=== PATIENT | female | born 1960 | race Caucasian/White ===

== ENCOUNTER → 2019-02-16 | Outpatient (CLI) | payer MEDICARE, MEDICAID | END | disposition home or self-care (01) | LOC: XY 08:28 | PROVIDERS: ATTEND Internal Medicine | DX: R07.9 Chest pain, unspecified (principal) | CPT/HCPCS: 78452; 93017; A9500 ==

== ENCOUNTER 2019-12-29 03:24 | Inpatient (IN) | payer MEDICARE, MEDICAID ==
[~2019-12-29] VITALS: Ht 152.4 cm; Wt 79.9 kg
[2019-12-29 04:11] LABS: Basophils # (auto) 0 10 ^3/uL (0-0.2); Basophils % (auto) 0.3 % (0.0-2.0); Eosinophils # (auto) 0 10 ^3/uL (0-0.8); Eosinophils % (auto) 0.9 % (0.0-7.0); Hematocrit 42.3 % (36.0-46.0); Hemoglobin 13.9 g/dL (12.2-16.2); Lymphocytes # (auto) 1.2 10 ^3/uL (0.4-5.4); Mean Corpuscular Hemoglobin 30.6 pg (28.0-32.0); Mean Corpuscular Hgb Conc. 32.9 g/dL (32.0-36.0); Monocytes # (auto) 0.3 10 ^3/uL (0-1.3); Monocytes % (auto) 5.2 % (0.0-12.0); Neutrophils # (auto) 4.1 10 ^3/uL (1.6-8.6); Neutrophils % (auto) 72.6 % (37.0-80.0); Nucleated Red Blood Cells % 0.1 %; Platelet Count (auto) 222 10^3/uL (140-450); Red Blood Cells 4.54 10^6/uL (4.0-5.20); White Blood Cell 5.6 10^3/uL (4.4-10.8)
[2019-12-29 04:27] LABS: INR 0.91 (0.9-1.15); Partial Thromboplastin Time 27.6 sec (23.64-32.05)
[2019-12-29 04:30] LABS: Anion Gap 10 (5-15); Blood Urea Nitrogen 23 mg/dL (7-18); Calcium 8.8 mg/dL (8.5-10.1); Carbon Dioxide 24 mmol/L (21-32); Chloride 103 mmol/L (98-107); Glucose 91 mg/dL (74-106); Potassium 3.6 mmol/L (3.5-5.1); Sodium 137 mmol/L (136-145)
[2019-12-29 04:35] LABS: Alanine Aminotransferase 26 U/L (13-56); Alkaline Phosphatase 75 U/L (45-117); Aspartate Aminotransferase 19 U/L (15-37); BUN/Creatinine Ratio 21.7; Bilirubin, Total 0.4 mg/dL (0.2-1.0); GFR African American 68 mL/min; GFR Non-African American 56 mL/min; Total Protein 8.1 g/dL (6.4-8.2)
[2019-12-29] MEDS ORDERED: diphenhdrAMINE HCL 50 MG/1 ML VL IV ONE (06:30)
[2019-12-29] MEDS ORDERED: LORazepam 2MG/ML-1ML VIAL IV ONE (06:30)
[2019-12-29 08:00] LABS: Urine Bacteria NONE SEEN /hpf (None Seen); Urine Blood Negative /uL (Negative); Urine Specific Gravity 1.045 (1.001-1.035); Urine WBC <1 /hpf (0 - 5)
[2019-12-29] MEDS ORDERED: AZITHROMYCIN 500MG/ 250ML 250 ML IV ONE (08:15)
[2019-12-29 08:44] LABS: CRP High Sensitivity 0.17 mg/dL (< 0.3)
[2019-12-29 09:35] LABS: Lactic Acid w/Reflex 2.1 mmol/L (0.4-2.0)
[2019-12-29] MEDS ORDERED: FUROSEMIDE 20 MG/2 ML VIAL IV ONE (13:30)
[2019-12-29] MEDS ORDERED: NITROGLYCERIN 0.4 MG SL TAB SL PRN (13:30)
[2019-12-29] MEDS ORDERED: MORPHINE SULF INJ 2 MG/ML SYRINGE 1ML IV PRN (13:30)
[2019-12-29] MEDS ORDERED: ACETAMINOPHEN 500 MG TAB PO PRN (13:30)
[2019-12-29] MEDS ORDERED: CHOLECALCIFEROL (VITD3) 1,000IU=25mCg TAB PO SCH (13:31)
[2019-12-29] MEDS ORDERED: ASCORBIC ACID 1,000 MG TAB PO SCH (13:31)
[2019-12-29] MEDS ORDERED: ZINC SULFATE 220mg CAP or TAB PO SCH (13:32)
[2019-12-29] MEDS: PANTOPRAZOLE 40 MG TAB PO SCH (13:32)
[2019-12-29] MEDS: ENOXAPARIN SOD 40 MG/0.4 ML SYRINGE SC SCH (13:32)
[2019-12-29] MEDS ORDERED: DEXTROSE (50%) 50ML SYRG IV PRN (13:45)
[2019-12-29] MEDS ORDERED: ALBUTEROL SULF HFA 90MCG INH 200DOSE IN SCH (14:00)
[2019-12-29 15:42] VITALS: BP 131/82
[2019-12-29] MEDS: InsuLIN REG 1unit/0.01ml Soln (100units/ml) SC SCH ×2 (17:00→21:43)
[2019-12-29] MEDS: ACCU-CHEK COMFORT CURVE STRIP VI SCH ×2 (17:55→21:43)
[2019-12-29 20:00] VITALS: BP 131/81
[2019-12-29] MEDS ORDERED: SIMV-8 PO (21:30)
[2019-12-29] MEDS ORDERED: METF-370 PO (21:30)
[2019-12-29] MEDS ORDERED: LOSA25TA38 PO (21:30)
[2019-12-29] MEDS ORDERED: HYDR12.56 PO (21:30)
[2019-12-29] MEDS ORDERED: DOXYCYCLINE 100 MG TAB/CAP PO SCH (22:00)
[2019-12-29] MEDS ORDERED: LOSARTAN POTASSIUM 25 MG TAB PO ONE (22:45)
[2019-12-30 05:30] VITALS: BP 129/66
[2019-12-30] MEDS: InsuLIN REG 1unit/0.01ml Soln (100units/ml) SC SCH ×4 (06:30→21:30)
[2019-12-30] MEDS: ACCU-CHEK COMFORT CURVE STRIP VI SCH ×4 (06:30→21:30)
[2019-12-30] MEDS: ENOXAPARIN SOD 40 MG/0.4 ML SYRINGE SC SCH (09:49)
[2019-12-30] MEDS: PANTOPRAZOLE 40 MG TAB PO SCH (09:49)
[2019-12-30 13:42] LABS: Cholesterol 214 mg/dL (< 200); HDL Cholesterol 79 mg/dL (40-59); LDL Cholesterol 123 mg/dL (< 100); Triglycerides 116 mg/dL (< 150)
[2019-12-30 14:00] VITALS: BP 119/83
[2019-12-30 17:00] VITALS: BP 109/60
[2019-12-30 21:52] VITALS: BP 131/70
[2019-12-30] MEDS ORDERED: ATORVASTATIN 20 MG TAB PO SCH (22:00)
[2019-12-31 05:09] VITALS: BP 105/57
[2019-12-31] MEDS: ACCU-CHEK COMFORT CURVE STRIP VI SCH ×4 (06:40→21:42)
[2019-12-31] MEDS: InsuLIN REG 1unit/0.01ml Soln (100units/ml) SC SCH ×4 (06:40→21:43)
[2019-12-31 08:00] VITALS: BP 120/69
[2019-12-31] MEDS: LOSARTAN POTASSIUM 25 MG TAB PO SCH (09:19)
[2019-12-31] MEDS: HCTZ 25 MG TAB PO SCH (09:20)
[2019-12-31] MEDS: ENOXAPARIN SOD 40 MG/0.4 ML SYRINGE SC SCH (09:20)
[2019-12-31] MEDS: PANTOPRAZOLE 40 MG TAB PO SCH (09:20)
[2019-12-31] MEDS: ATORVASTATIN 20 MG TAB PO SCH ×2 (11:56→21:42)
[2019-12-31 12:00] VITALS: BP 107/60
[2019-12-31 16:57] VITALS: BP 119/63
[2019-12-31 22:00] VITALS: BP 134/96
[2020-01-01 04:53] VITALS: BP 128/78
[2020-01-01] MEDS: InsuLIN REG 1unit/0.01ml Soln (100units/ml) SC SCH ×2 (06:22→11:27)
[2020-01-01] MEDS: ACCU-CHEK COMFORT CURVE STRIP VI SCH ×2 (06:22→11:28)
[2020-01-01 08:00] VITALS: BP 124/58
[2020-01-01] MEDS: PANTOPRAZOLE 40 MG TAB PO SCH (09:18)
[2020-01-01] MEDS: ENOXAPARIN SOD 40 MG/0.4 ML SYRINGE SC SCH (09:18)
[2020-01-01] MEDS: HCTZ 25 MG TAB PO SCH (09:18)
[2020-01-01] MEDS: LOSARTAN POTASSIUM 25 MG TAB PO SCH (09:19)
[2020-01-01 09:43] VITALS: BP 124/58
== END 2020-01-01 11:40 | disposition home or self-care (01) | DRG 204 ==
LOC: EDUNIT# 03:24 → EDBD 03:24 → ER 03:24 → TELE 03:25 → TELE-EAST 18:49 → TELE-WESTW 22:35
PROVIDERS: ADMIT Nurse Practitioner Acute Care; ATTEND Family Medicine
DX: R06.09 Other forms of dyspnea (principal); E66.9 Obesity, unspecified; K21.9 Gastro-esophageal reflux disease without esophagitis; E11.9 Type 2 diabetes mellitus without complications; E78.5 Hyperlipidemia, unspecified; E78.00 Pure hypercholesterolemia, unspecified; Z79.899 Other long term (current) drug therapy; I10 Essential (primary) hypertension; Z20.828 Contact with and (suspected) exposure to other viral communicable diseases; Z68.33 Body mass index [BMI] 33.0-33.9, adult; F41.9 Anxiety disorder, unspecified
CPT/HCPCS: 36415; 71045; 71275; 80053; 80061; 81001; 82728; 82962; 83605; 83615; 83880; 84443; 84484; 85025; 85379; 85610; 85730; 86141; 87040; 87070; 87804; 87880; 93005; 93306; 96365; 96366; 96372; 96375; G0378

== ENCOUNTER → 2020-04-14 | Outpatient (CLI) | payer MEDICARE, MEDICAID ==
[~2020-04-14] MED LIST: HYDR12.56 PO; LOSA25TA38 PO; METF-370 PO; SIMV-8 PO
[2020-04-14 10:45] LABS: Basophils # (auto) 0 10 ^3/uL (0-0.2); Basophils % (auto) 0.5 % (0.0-2.0); Eosinophils # (auto) 0 10 ^3/uL (0-0.8); Eosinophils % (auto) 1.3 % (0.0-7.0); Hematocrit 42.2 % (36.0-46.0); Hemoglobin 13.6 g/dL (12.2-16.2); Lymphocytes # (auto) 1.2 10 ^3/uL (0.4-5.4); Lymphocytes % (auto) 35.6 % (10.0-50.0); Mean Corpuscular Hemoglobin 30.6 pg (28.0-32.0); Mean Corpuscular Hgb Conc. 32.3 g/dL (32.0-36.0); Mean Corpuscular Volume 94.7 fL (80.0-100.0); Monocytes # (auto) 0.3 10 ^3/uL (0-1.3); Monocytes % (auto) 9.6 % (0.0-12.0); Neutrophils # (auto) 1.8 10 ^3/uL (1.6-8.6); Platelet Count (auto) 235 10^3/uL (140-450); Red Blood Cells 4.46 10^6/uL (4.0-5.20); Red Cell Distribution Width 15.1 % (11.8-14.3); White Blood Cell 3.4 10^3/uL (4.4-10.8)
[2020-04-14 11:02] LABS: Urine Bacteria NONE SEEN /hpf (None Seen); Urine Blood Negative /uL (Negative); Urine Mucus FEW (None Seen); Urine Specific Gravity 1.039 (1.001-1.035); Urine WBC 2 /hpf (0 - 5)
[2020-04-14 11:38] LABS: Potassium 4.2 mmol/L (3.5-5.1)
[2020-04-14 11:47] LABS: Albumin 3.9 g/dL (3.4-5.0); BUN/Creatinine Ratio 28.6; Bilirubin, Total 0.4 mg/dL (0.2-1.0); Calcium 9.7 mg/dL (8.5-10.1); Total Protein 7.6 g/dL (6.4-8.2)
== END | disposition home or self-care (01) ==
LOC: LAB 10:27
PROVIDERS: ATTEND Physician Assistant
DX: E11.9 Type 2 diabetes mellitus without complications (principal); I10 Essential (primary) hypertension; E78.2 Mixed hyperlipidemia; E66.01 Morbid (severe) obesity due to excess calories; R06.00 Dyspnea, unspecified
CPT/HCPCS: 36415; 80053; 80061; 81001; 82043; 83036; 85025

== ENCOUNTER → 2020-04-14 | Outpatient (CLI) | payer MEDICARE, MEDICAID ==
[~2020-04-14] MED LIST changes: +ALBUTEROL SULF 2.5 MG/0.5ML(0.5%) NEB SOLN ONE
== END | disposition home or self-care (01) ==
LOC: RT 08:32
PROVIDERS: ATTEND Internal Medicine Pulmonary Disease
DX: R06.02 Shortness of breath (principal)
CPT/HCPCS: 94060; 94727; 94729

== ENCOUNTER → 2020-05-03 | Outpatient (CLI) | payer MEDICARE, MEDICAID ==
[~2020-05-03] MED LIST changes: -ALBUTEROL SULF 2.5 MG/0.5ML(0.5%) NEB SOLN ONE
== END | disposition home or self-care (01) ==
LOC: XYW 09:06
PROVIDERS: ATTEND Internal Medicine Pulmonary Disease
DX: I27.20 Pulmonary hypertension, unspecified (principal)
CPT/HCPCS: 93306